=== PATIENT | male | born 1970 | race Caucasian/White ===

== ENCOUNTER 2019-01-12 21:09 | Observation (INO) | payer OTHER ==
[2019-01-12] MEDS ORDERED: HYDROmorphone 1 MG/ML 1 ML SYRINGE IVP STA (22:13)
[2019-01-12] MEDS ORDERED: SODIUM CHLORIDE 0.9% 1,000 ML IV STA (22:13)
[2019-01-12] MEDS ORDERED: ONDANSETRON 4 MG/2 ML VIAL IVP STA (22:13)
[2019-01-12] MEDS ORDERED: FAMOTIDINE 20 MG/2 ML VIAL IV STA (22:14)
--- NOTE | 2019-01-12 22:16 | ED ---
Abdominal Pain HPI - General Source: patient Mode of arrival: ambulatory Limitations: no limitations <Imani Rizzo - Last Filed: 01/13/19 02:53> <Amaury Corbin - Last Filed: 01/16/19 06:41> - General Chief Complaint: Abdominal Pain Stated Complaint: Abd pain, vomiting Time Seen by Provider: 01/12/19 21:40 - History of Present Illness Initial Comments: 48 year-old male patient presents to the emergency department today for evaluation of epigastric abdominal pain. Patient states that the pain started around 3 PM in the afternoon. States he has had multiple episodes of vomiting since. States there is 3-4 episodes a contained dark red blood. Patient states the pain is severe. Patient states he is unable to get comfortable. Patient states he has had this happen one time in the past when he became overheated. He denies any constipation or diarrhea. Denies any fever or chills. Patient denies any recent rash, shortness breath, chest pain, numbness, tingling, dizziness, weakness, hematuria, dysuria, urinary urgency, urinary frequency, headache, visual changes, or any other complaints. (Imani Rizzo) - Related Data Home Medications Medication Instructions Recorded Confirmed Metoclopramide [Reglan] 5 mg PO ACHS PRN 01/14/19 01/14/19 Previous Rx's Medication Instructions Recorded Omeprazole [PriLOSEC] 40 mg PO AC-BRKFST #30 capsule. 01/13/19 Allergies Allergy/AdvReac Type Severity Reaction Status Date / Time No Known Allergies Allergy Verified 01/14/19 10:15 Review of Systems ROS Other: All systems not noted in ROS Statement are negative. <Imani Rizzo - Last Filed: 01/13/19 02:53> ROS Other: All systems not noted in ROS Statement are negative. <Amaury Corbin - Last Filed: 01/16/19 06:41> ROS Statement: Those systems with pertinent positive or pertinent negative responses have been documented in the HPI. Past Medical History Past Medical History: No Reported History History of Any Multi-Drug Resistant Organisms: None Reported Past Surgical History: No Surgical Hx Reported Additional Past Surgical History / Comment(s): skin graft. Past Psychological History: No Psychological Hx Reported Smoking Status: Never smoker Past Alcohol Use History: None Reported Past Drug Use History: Marijuana <Imani Rizzo M - Last Filed: 01/13/19 02:53> General Exam Limitations: no limitations General appearance: alert, in no apparent distress, other (Physical well- developed, well-nourished adult male patient in no acute distress. Vital signs upon presentation are temperature 98.0F, pulse 100, respirations 16, blood pressure 131/69, pulse ox 100% on room air.) Eye exam: Present: normal appearance, PERRL, EOMI. Absent: scleral icterus, conjunctival injection, periorbital swelling ENT exam: Present: normal exam, normal oropharynx, mucous membranes moist Respiratory exam: Present: normal lung sounds bilaterally. Absent: respiratory distress, wheezes, rales, rhonchi, stridor Cardiovascular Exam: Present: regular rate, normal rhythm, normal heart sounds. Absent: systolic murmur, diastolic murmur, rubs, gallop, clicks GI/Abdominal exam: Present: soft, tenderness (Midepigastric tenderness), normal bowel sounds. Absent: distended, guarding, rebound, rigid Neurological exam: Present: alert, oriented X3, CN II-XII intact Psychiatric exam: Present: normal affect, normal mood Skin exam: Present: warm, dry, intact, normal color. Absent: rash <Imani Rizzo Jarret - Last Filed: 01/13/19 02:53> Course Vital Signs 01/12/19 01/12/19 01/13/19 21:19 23:15 03:11 Temperature 98.0 F 98 F Pulse Rate 100 103 H Pulse Rate [ 84 Right] Respiratory 16 20 18 Rate Blood Pressure 131/69 128/65 Blood Pressure 136/87 [Right Arm] O2 Sat by Pulse 100 99 98 Oximetry Medical Decision Making - Lab Data Result diagrams: 01/12/19 22:34 01/12/19 22:34 - Radiology Data Radiology results: report reviewed, image reviewed <Imani Rizzo - Last Filed: 01/13/19 02:53> - Lab Data Result diagrams: 01/12/19 22:34 01/12/19 22:34 <Amaury Corbin - Last Filed: 01/16/19 06:41> - Medical Decision Making 48 year-old male patient presents to the emergency department today for evaluation of midepigastric abdominal pain. Patient states the pain is burning, aching, and radiating through to his back. Patient states the pain is severe. Patient states he has had 10-11 episodes of vomiting prior to arrival. Physical examination did reveal midepigastric tenderness. Labs reviewed and did reveal white blood cell count of 10.7. CT abdomen and pelvis was obtained and showed no acute abnormalities. Patient was given multiple doses of pain and nausea medication with minimal relief of symptoms. He will be admitted for intractable abdominal pain and repeat labs in the morning. (Imani Rizzo) I saw this patient in conjunction with the physician assistant professor of english. I performed independent history and physical exam. Agree with case management. (Amaury Corbin) - Lab Data Lab Results 01/12/19 01/12/19 01/12/19 Range/Units 22:34 22:34 22:34 WBC 10.7 H (3.8-10.6) k/uL RBC 5.28 (4.30-5.90) m/uL Hgb 17.3 (13.0-17.5) gm/dL Hct 48.6 (39.0-53.0) % MCV 92.1 (80.0-100.0) fL MCH 32.8 (25.0-35.0) pg MCHC 35.6 (31.0-37.0) g/dL RDW 13.5 (11.5-15.5) % Plt Count 282 (150-450) k/uL Neutrophils % 85 % Lymphocytes % 11 % Monocytes % 2 % Eosinophils % 1 % Basophils % 0 % Neutrophils # 9.0 H (1.3-7.7) k/uL Lymphocytes # 1.2 (1.0-4.8) k/uL Monocytes # 0.2 (0-1.0) k/uL Eosinophils # 0.1 (0-0.7) k/uL Basophils # 0.0 (0-0.2) k/uL Sodium 142 (137-145) mmol/L Potassium 4.5 (3.5-5.1) mmol/L Chloride 106 (98-107) mmol/L Carbon Dioxide 23 (22-30) mmol/L Anion Gap 13 mmol/L BUN 19 (9-20) mg/dL Creatinine 1.08 (0.66-1.25) mg/dL Est GFR (CKD-EPI)AfAm >90 (>60 ml/min/1.73 sqM) Est GFR (CKD-EPI)NonAf 82 (>60 ml/min/1.73 sqM) Glucose 139 H (74-99) mg/dL Calcium 10.6 H (8.4-10.2) mg/dL Total Bilirubin 1.0 (0.2-1.3) mg/dL AST 38 (17-59) U/L ALT 39 (21-72) U/L Alkaline Phosphatase 91 (38-126) U/L Troponin I <0.012 (0.000-0.034) ng/mL Total Protein 8.5 H (6.3-8.2) g/dL Albumin 5.1 H (3.5-5.0) g/dL Amylase 53 (30-110) U/L Lipase 88 (23-300) U/L Urine Color Urine Appearance (Clear) Urine pH (5.0-8.0) Ur Specific [place] (1.001-1.035) Urine Protein (Negative) Urine Glucose (UA) (Negative) Urine Ketones (Negative) Urine Blood (Negative) Urine Nitrite (Negative) Urine Bilirubin (Negative) Urine Urobilinogen (<2.0) mg/dL Ur Leukocyte Esterase (Negative) Urine RBC (0-5) /hpf Urine WBC (0-5) /hpf Urine Mucus (None) /hpf 01/13/19 Range/Units 00:02 WBC (3.8-10.6) k/uL RBC (4.30-5.90) m/uL Hgb (13.0-17.5) gm/dL Hct (39.0-53.0) % MCV (80.0-100.0) fL MCH (25.0-35.0) pg MCHC (31.0-37.0) g/dL RDW (11.5-15.5) % Plt Count (150-450) k/uL Neutrophils % % Lymphocytes % % Monocytes % % Eosinophils % % Basophils % % Neutrophils # (1.3-7.7) k/uL Lymphocytes # (1.0-4.8) k/uL Monocytes # (0-1.0) k/uL Eosinophils # (0-0.7) k/uL Basophils # (0-0.2) k/uL Sodium (137-145) mmol/L Potassium (3.5-5.1) mmol/L Chloride (98-107) mmol/L Carbon Dioxide (22-30) mmol/L Anion Gap mmol/L BUN (9-20) mg/dL Creatinine (0.66-1.25) mg/dL Est GFR (CKD-EPI)AfAm (>60 ml/min/1.73 sqM) Est GFR (CKD-EPI)NonAf (>60 ml/min/1.73 sqM) Glucose (74-99) mg/dL Calcium (8.4-10.2) mg/dL Total Bilirubin (0.2-1.3) mg/dL AST (17-59) U/L ALT (21-72) U/L Alkaline Phosphatase (38-126) U/L Troponin I (0.000-0.034) ng/mL Total Protein (6.3-8.2) g/dL Albumin (3.5-5.0) g/dL Amylase (30-110) U/L Lipase (23-300) U/L Urine Color Yellow Urine Appearance Cloudy (Clear) Urine pH 5.5 (5.0-8.0) Ur Specific [place] >1.050 H (1.001-1.035) Urine Protein 2+ H (Negative) Urine Glucose (UA) Negative (Negative) Urine Ketones 3+ H (Negative) Urine Blood Small H (Negative) Urine Nitrite Negative (Negative) Urine Bilirubin Negative (Negative) Urine Urobilinogen <2.0 (<2.0) mg/dL Ur Leukocyte Esterase Negative (Negative) Urine RBC 1 (0-5) /hpf Urine WBC 1 (0-5) /hpf Urine Mucus Occasional H (None) /hpf - Radiology Data CT abdomen and pelvis was obtained. Report was reviewed in its entirety. Impression shows no acute abnormality in the abdomen or pelvis. (Imani Rizzo) Disposition Decision to Admit Reason: Admit from EC Decision Date: 01/13/19 Decision Time: 02:15 <Imani Rizzo - Last Filed: 01/13/19 02:53> <Amaury Corbin - Last Filed: 01/16/19 06:41> Clinical Impression: Intractable abdominal pain Disposition: ADMITTED IP TO THIS [facility] Condition: Serious
[2019-01-12 22:50] LABS: Basophils % (A) 0 %; Eosinophils # (A) 0.1 k/uL (0-0.7); Eosinophils % (A) 1 %; HCT 48.6 % (39.0-53.0); HGB 17.3 gm/dL (13.0-17.5); Lymphocytes # (A) 1.2 k/uL (1.0-4.8); Lymphocytes % (A) 11 %; MCH 32.8 pg (25.0-35.0); MCHC 35.6 g/dL (31.0-37.0); MCV 92.1 fL (80.0-100.0); Mean Platelet Volume 6.4; Monocytes # (A) 0.2 k/uL (0-1.0); Monocytes % (A) 2 %; Neutrophils % (A) 85 %; Platelet Count 282 k/uL (150-450); RBC 5.28 m/uL (4.30-5.90); RDW 13.5 % (11.5-15.5); WBC 10.7 k/uL (3.8-10.6)
[2019-01-12 23:09] LABS: ALT 39 U/L (21-72); AST 38 U/L (17-59); African American GFR (CKD) >90 (>60 ml/min/1.73 sqM); Albumin 5.1 g/dL (3.5-5.0); Alkaline Phosphatase 91 U/L (38-126); Amylase 53 U/L (30-110); Anion Gap 13 mmol/L; Blood Urea Nitrogen 19 mg/dL (9-20); Calcium 10.6 mg/dL (8.4-10.2); Carbon Dioxide 23 mmol/L (22-30); Chloride 106 mmol/L (98-107); Glucose 139 mg/dL (74-99); Potassium 4.5 mmol/L (3.5-5.1); Sodium 142 mmol/L (137-145); Total Protein 8.5 g/dL (6.3-8.2)
--- NOTE | 2019-01-12 23:47 | CT ---
EXAM: CT Abdomen and Pelvis With Intravenous Contrast CLINICAL HISTORY: ITS.REASON CT Reason: Pain TECHNIQUE: Axial computed tomography images of the abdomen and pelvis with intravenous contrast. CTDI is 35.87 mGy and DLP is 1897 mGy-cm. This CT exam was performed using one or more of the following dose reduction techniques: automated exposure control, adjustment of the mA and/or kV according to patient size, and/or use of iterative reconstruction technique. COMPARISON: None FINDINGS: Liver: Small right hepatic cyst. Spleen: Mild splenomegaly. No focal lesion. Gallbladder: Normal. No stones or biliary dilatation. Pancreas: Normal. No acute inflammation. No mass. Adrenal glands: Normal. No mass. Kidneys: Right renal cyst adjacent to mild scarring. Other small hypodensities in the right kidney are too small to definitively characterize. No hydronephrosis or obstructing stone. Bowel: Normal appendix. No bowel obstruction or inflammation. Urinary bladder: Normal. No wall thickening or mass. Reproductive organs: Small cystic structure measuring approximately 1.7 cm along the right spermatic cord. Muscles: No mass. Subcutaneous tissues: Mild bilateral gynecomastia. Small fat- containing umbilical hernia. Peritoneal space: Normal. No free fluid. Lymph nodes: Mildly prominent mesenteric lymph nodes are nonspecific but may be reactive. Vessels: Normal. No aneurysm or dissection. Bones: Degenerative changes of the spine. No acute fracture or bony lesion. Lung bases: Mild dependent atelectasis bilaterally. Other: Small hiatal hernia. IMPRESSION: No acute abnormality in the abdomen or pelvis.
[2019-01-13] MEDS ORDERED: HYDROmorphone 2 MG/ML 1 ML SYRINGE IVP STA (00:24)
[2019-01-13 00:27] LABS: Appearance,Urine Cloudy (Clear); Bilirubin,Urine Negative (Negative); Blood,Urine Small (Negative); Color,Urine Yellow; Glucose,Urine (UA) Negative (Negative); Ketones,Urine 3+ (Negative); Leukocyte Esterase,Urine Negative (Negative); Mucus,Urine Occasional /hpf; Nitrite,Urine Negative (Negative); PH, Urine 5.5 (5.0-8.0); Protein,Urine 2+ (Negative); RBC,Urine 1 /hpf (0-5); Urobilinogen,Urine <2.0 mg/dL (<2.0); WBC,Urine 1 /hpf (0-5)
[2019-01-13 00:29] LABS: Specific Gravity,Urine >1.050 (1.001-1.035)
[2019-01-13] MEDS ORDERED: diphenhydrAMINE 50 MG/ML 1 ML VIAL IVP STA (00:33)
[2019-01-13] MEDS ORDERED: METOCLOPRAMIDE 5 MG/ML 2 ML VIAL IVP STA (00:33)
[2019-01-13] MEDS ORDERED: NALOXONE 0.4 MG/ML 1 ML VIAL IV PRN (01:01)
[2019-01-13] MEDS ORDERED: HYDROmorphone 1 MG/ML 1 ML SYRINGE IVP PRN (01:01)
[2019-01-13] MEDS ORDERED: ONDANSETRON 4 MG/2 ML VIAL IVP PRN (01:01)
[2019-01-13] MEDS ORDERED: SODIUM CHLORIDE 0.9% 1,000 ML IV SCH (01:15)
[2019-01-13 03:15] VITALS: BMI 34.9
[2019-01-13] MEDS ORDERED: PANTOPRAZOLE 40 MG/10 ML VIAL IVP SCH (11:15)
[2019-01-13 12:10] VITALS: BP 125/82; PULSE 82; RESP 16; TEMP 97.9
--- NOTE | 2019-01-13 12:24 | P.DS ---
Providers Date of admission: 01/13/19 02:16 Attending physician: Arlen Valladares Primary care physician: Vandana Oliva [facility] Course: Please refer to my HPI for further details Patient Condition at Discharge: Serious Plan - Discharge Summary Discharge Rx Participant: Yes New Discharge Prescriptions: New Omeprazole [PriLOSEC] 40 mg PO AC-BRKFST #30 capsule. Discontinued Naproxen Sodium [Aleve] 440 mg PO Q12HR PRN PRN Reason: Pain Discharge Medication List Omeprazole [PriLOSEC] 40 mg PO AC-BRKFST #30 capsule. 01/13/19 [Rx] Follow up Appointment(s)/Referral(s): Modesta Silveira MD [STAFF PHYSICIAN] - 1 Week (Unable to make this appointment due to their phones please call and make this appointment.) None,Stated [REFERRING] - 1-2 days Patient Instructions/Handouts: Omeprazole (By mouth), Acute Abdominal Pain (DC) Activity/Diet/Wound Care/Special Instructions: activity limited until seen by No Motrin, Aspirin, aleve, Take Tylenol for pain regular diet avoid spicy foods until seen by the DR. Discharge Disposition: HOME SELF-CARE
--- NOTE | 2019-01-13 12:24 | P.HPIM ---
History of Present Illness 48-year-old pleasant man came in with compensative from severe epigastric abdominal pain mostly burning sensation and sharp pain started yesterday afternoon had multiple episodes of nausea vomiting admitted with about 3-4 episodes which contained dark red blood.. Patient was given Pepcid with significant improvement in symptoms I ordered Protonix today morning patient does take naproxen at home. Patient denied dysuria, fever. His abdominal pain nausea vomiting improved patient was started on diet. Patient was asked not to take naproxen can use extra strength Tylenol for pain up to 4-6 g total in a day. Patient will be discharged on a month up for Prilosec. No more nausea vomiting. Review of Systems REVIEW OF SYSTEMS: CONSTITUTIONAL: No fever, no malaise, no fatigue. HEENT: No recent visual problems or hearing problems. Denied any sore throat. CARDIOVASCULAR: No chest pain, orthopnea, PND, no palpitations, no syncope. PULMONARY: No shortness of breath, no cough, no hemoptysis. GASTROINTESTINAL: No diarrhea, NEUROLOGICAL: No headaches, no weakness, no numbness. HEMATOLOGICAL: Denies any bleeding or petechiae. GENITOURINARY: Denies any burning micturition, frequency, or urgency. MUSCULOSKELETAL/RHEUMATOLOGICAL: Denies any joint pain, swelling, or any muscle pain. ENDOCRINE: Denies any polyuria or polydipsia. The rest of the 14-point review of systems is negative. Past Medical History Past Medical History: No Reported History History of Any Multi-Drug Resistant Organisms: None Reported Past Surgical History: No Surgical Hx Reported Additional Past Surgical History / Comment(s): skin graft. Past Psychological History: No Psychological Hx Reported Smoking Status: Never smoker Past Alcohol Use History: None Reported Past Drug Use History: Marijuana Medications and Allergies Home Medications Medication Instructions Recorded Confirmed Type Omeprazole [PriLOSEC] 40 mg PO AC-BRKFST #30 capsule. 01/13/19 Rx Allergies Allergy/AdvReac Type Severity Reaction Status Date / Time No Known Allergies Allergy Verified 01/12/19 21:35 Physical Exam Vitals: Vital Signs Temp Pulse Pulse Resp BP BP Pulse Ox 01/13/19 12:09 97.9 F 82 16 125/82 96 01/13/19 08:30 84 18 01/13/19 03:11 98 F 84 18 136/87 98 01/12/19 23:15 103 H 20 128/65 99 01/12/19 21:19 98.0 F 100 16 131/69 100 Intake and Output 01/12/19 01/13/19 01/13/19 22:59 06:59 14:59 Intake Total 240 Balance 240 Intake: Intake, IV Titration 240 Amount Sodium Chloride 0.9% 1, 240 000 ml @ 80 mls/hr IV . [id number] AJAY Rx#:[id number] Other: # Voids 1 Weight 127.006 kg PHYSICAL EXAMINATION: GENERAL: The patient is alert and oriented x3, not in any acute distress. Obese HEENT: Pupils are round and equally reacting to light. EOMI. No scleral icterus. No conjunctival pallor. Normocephalic, atraumatic. No pharyngeal erythema. No thyromegaly. CARDIOVASCULAR: S1 and S2 present. No murmurs, rubs, or gallops. PULMONARY: Chest is clear to auscultation, no wheezing or crackles. ABDOMEN: Soft, nontender, nondistended, normoactive bowel sounds. No palpable organomegaly. MUSCULOSKELETAL: No joint swelling or deformity. EXTREMITIES: No cyanosis, clubbing, or pedal edema. NEUROLOGICAL: Gross neurological examination did not reveal any focal deficits. SKIN: No rashes. Results CBC & Chem 7: 01/12/19 22:34 01/12/19 22:34 Labs: Abnormal Lab Results - Last 24 Hours (Table) 01/12/19 01/12/19 01/13/19 Range/Units 22:34 22:34 00:02 WBC 10.7 H (3.8-10.6) k/uL Neutrophils # 9.0 H (1.3-7.7) k/uL Glucose 139 H (74-99) mg/dL Calcium 10.6 H (8.4-10.2) mg/dL Total Protein 8.5 H (6.3-8.2) g/dL Albumin 5.1 H (3.5-5.0) g/dL Ur Specific [place] >1.050 H (1.001-1.035) Urine Protein 2+ H (Negative) Urine Ketones 3+ H (Negative) Urine Blood Small H (Negative) Urine Mucus Occasional H (None) /hpf Thrombosis Risk Factor Assmnt - Choose All That Apply Any of the Below Risk Factors Present?: Yes Each Factor Represents 1 point: Age 41-60 years Other Risk Factors: No Other congenital or acquired thrombophilia - If yes, enter type in comment: No Thrombosis Risk Factor Assessment Total Risk Factor Score: 1 Thrombosis Risk Factor Assessment Level: Low Risk Assessment and Plan Plan: -Acute upper GI bleed: Secondary to severe esophagitis and gastritis or peptic is a disease improved symptoms will be discharged to follow up with primary care physician. Improved symptoms at this time blood start him on diet advance as tolerated and patient will be discharged on Prilosec avoid naproxen -Obesity: Counseling was provided -Occasional marijuana use: Counseling was provided regarding this
== END 2019-01-13 15:22 | disposition home or self-care (01) ==
LOC: EC 21:09 → SUPCPDRO 21:09 → 3NMEDONC 01-13 02:16
PROVIDERS: ADMIT Hospitalist; ATTEND Hospitalist
DX: K92.2 Gastrointestinal hemorrhage, unspecified (principal); R10.13 Epigastric pain; R11.10 Vomiting, unspecified; E66.9 Obesity, unspecified; Z68.35 Body mass index [BMI] 35.0-35.9, adult; Z79.899 Other long term (current) drug therapy
CPT/HCPCS: 96375 ×3; 96376; 96361 ×2; 96374; 99285; 36415; 93005; 80053; 82150; 83690; 84484; 85025; 81001; 74177; G0378; J1170 ×2; J1200; J2765; J2405; C9113; Q9967

== ENCOUNTER 2019-01-14 09:51 | Observation (INO) | payer OTHER ==
[2019-01-14] MEDS ORDERED: MORPHINE SULFATE 4 MG/ML SYRINGE IVP STA (10:23)
[2019-01-14] MEDS ORDERED: PANTOPRAZOLE 40 MG/10 ML VIAL IVP STA (10:23)
[2019-01-14] MEDS ORDERED: SODIUM CHLORIDE 0.9% 1,000 ML IV STA (10:23)
[2019-01-14] MEDS ORDERED: METOCLOPRAMIDE 5 MG/ML 2 ML VIAL IVP STA (10:23)
--- NOTE | 2019-01-14 10:37 | ED ---
Nausea/Vomiting/Diarrhea HPI - General Chief complaint: Nausea/Vomiting/Diarrhea Stated complaint: Stomach pain Time Seen by Provider: 01/14/19 10:02 Source: patient Mode of arrival: ambulatory Limitations: no limitations - History of Present Illness Initial comments: Patient is a 48-year-old male presenting to the emergency Department with complaints of epigastric abdominal pain and vomiting since this morning. Patient was discharged from the hospital yesterday for the same issue after staying the night and observation. Patient states he was feeling improvement yesterday and was no longer vomiting. Patient did have a abdominal CT which was normal yesterday. Patient states he attempted a bowel movement this morning when the pain started again and he has been vomiting ever since. Patient states he did not take anything for the pain he just came to the ER again. Patient states the pain has not moved and is localized and epigastric area. Patient denies any fever, chills, diarrhea. Patient states there is no blood in his vomit. Upon arrival to the ER, patient is vomiting and in extreme amount of pain. - Related Data Home Medications Medication Instructions Recorded Confirmed Metoclopramide [Reglan] 5 mg PO ACHS PRN 01/14/19 01/14/19 Previous Rx's Medication Instructions Recorded Omeprazole [PriLOSEC] 40 mg PO AC-BRKFST #30 capsule. 01/13/19 Allergies Allergy/AdvReac Type Severity Reaction Status Date / Time No Known Allergies Allergy Verified 01/14/19 10:15 Review of Systems ROS Statement: Those systems with pertinent positive or pertinent negative responses have been documented in the HPI. ROS Other: All systems not noted in ROS Statement are negative. Past Medical History Past Medical History: No Reported History History of Any Multi-Drug Resistant Organisms: None Reported Past Surgical History: No Surgical Hx Reported Additional Past Surgical History / Comment(s): skin graft. Past Psychological History: No Psychological Hx Reported Smoking Status: Never smoker Past Alcohol Use History: None Reported Past Drug Use History: Marijuana General Exam - General Exam Comments Initial Comments: GENERAL: Well-appearing, well-nourished and in mild amount of distress and currently vomiting. HEAD: Atraumatic, normocephalic. EYES: Pupils equal round and reactive to light, extraocular movements intact, sclera anicteric, conjunctiva are normal. ENT: Nares patent, oropharynx clear without exudates. Moist mucous membranes. NECK: Normal range of motion, supple without lymphadenopathy or JVD. LUNGS: Breath sounds clear to auscultation bilaterally and equal. No wheezes rales or rhonchi. HEART: Regular rate and rhythm without murmurs, rubs or gallops. ABDOMEN: Patient is very tender to palpation in the epigastric area. Soft, normoactive bowel sounds. No rebound. No masses appreciated. : Deferred EXTREMITIES: Normal range of motion, no pitting or edema. No clubbing or cyanosis. NEUROLOGICAL: Cranial nerves II through XII grossly intact. Normal speech, normal gait. PSYCH: Normal mood, normal affect. SKIN: Warm, Dry, normal turgor, no rashes or lesions noted. Limitations: no limitations Course Vital Signs 01/14/19 01/14/19 01/14/19 11:05 13:12 16:19 Pulse Rate 80 72 75 Respiratory 22 18 18 Rate Blood Pressure 128/108 145/83 141/58 O2 Sat by Pulse 99 98 98 Oximetry Medical Decision Making - Medical Decision Making Patient is a 48-year-old male presenting with acute epigastric pain and vomiting since this morning. Patient was [facility] and was seen by Dr. Frank. Patient states he felt improvement yesterday but then this morning the pain and vomiting returned. Upon arrival patient is forcefully vomiting and screaming in pain. On exam patient is severely tender in epigastric area. Patient is very anxious and crying in pain. Patient is afebrile. CBC shows white count of 12.5, CMP is within normal limits, UA shows trace blood but otherwise within normal limits. X-ray abdomen shows mild degree of colonic fecal stasis and mild gas dilation of the colon. Patient was given pain medication, Zofran, Protonix, Reglan, Pepcid with mild relief of symptoms. Patient seemed anxious with every recheck. Case was discussed with Dr. Yancey. Dr. Frank came and evaluated the patient and will admit for possible endoscope in the morning. - Lab Data Result diagrams: 01/14/19 10:30 01/14/19 11:30 Lab Results 01/14/19 01/14/19 01/14/19 Range/Units 10:30 10:40 11:30 WBC 12.5 H (3.8-10.6) k/uL RBC 5.11 (4.30-5.90) m/uL Hgb 16.5 (13.0-17.5) gm/dL Hct 47.5 (39.0-53.0) % MCV 93.1 (80.0-100.0) fL MCH 32.3 (25.0-35.0) pg MCHC 34.7 (31.0-37.0) g/dL RDW 13.5 (11.5-15.5) % Plt Count 282 (150-450) k/uL Neutrophils % 78 % Lymphocytes % 15 % Monocytes % 4 % Eosinophils % 3 % Basophils % 0 % Neutrophils # 9.7 H (1.3-7.7) k/uL Lymphocytes # 1.9 (1.0-4.8) k/uL Monocytes # 0.4 (0-1.0) k/uL Eosinophils # 0.3 (0-0.7) k/uL Basophils # 0.0 (0-0.2) k/uL Sodium 141 (137-145) mmol/L Potassium 4.5 (3.5-5.1) mmol/L Chloride 109 H (98-107) mmol/L Carbon Dioxide 20 L (22-30) mmol/L Anion Gap 12 mmol/L BUN 17 (9-20) mg/dL Creatinine 0.81 (0.66-1.25) mg/dL Est GFR (CKD-EPI)AfAm >90 (>60 ml/min/1.73 sqM) Est GFR (CKD-EPI)NonAf >90 (>60 ml/min/1.73 sqM) Glucose 110 H (74-99) mg/dL Calcium 9.6 (8.4-10.2) mg/dL Total Bilirubin 1.0 (0.2-1.3) mg/dL AST 56 (17-59) U/L ALT 40 (21-72) U/L Alkaline Phosphatase 74 (38-126) U/L Total Protein 7.5 (6.3-8.2) g/dL Albumin 4.5 (3.5-5.0) g/dL Urine Color Yellow Urine Appearance Clear (Clear) Urine pH 6.0 (5.0-8.0) Ur Specific [place] 1.022 (1.001-1.035) Urine Protein 1+ H (Negative) Urine Glucose (UA) Negative (Negative) Urine Ketones Negative (Negative) Urine Blood Trace H (Negative) Urine Nitrite Negative (Negative) Urine Bilirubin Negative (Negative) Urine Urobilinogen <2.0 (<2.0) mg/dL Ur Leukocyte Esterase Negative (Negative) Urine RBC 2 (0-5) /hpf Urine WBC 1 (0-5) /hpf Urine Mucus Occasional H (None) /hpf Disposition Clinical Impression: Intractable abdominal pain, Nausea & vomiting Disposition: ADMITTED IP TO THIS [facility] Condition: Good Is patient prescribed a controlled substance at d/c from ED?: No Decision Date: 01/14/19 Decision Time: 14:20
[2019-01-14 10:47] LABS: Basophils % (A) 0 %; Eosinophils # (A) 0.3 k/uL (0-0.7); Eosinophils % (A) 3 %; HCT 47.5 % (39.0-53.0); HGB 16.5 gm/dL (13.0-17.5); Lymphocytes # (A) 1.9 k/uL (1.0-4.8); Lymphocytes % (A) 15 %; MCH 32.3 pg (25.0-35.0); MCHC 34.7 g/dL (31.0-37.0); MCV 93.1 fL (80.0-100.0); Mean Platelet Volume 7.3; Monocytes # (A) 0.4 k/uL (0-1.0); Monocytes % (A) 4 %; Neutrophils # (A) 9.7 k/uL (1.3-7.7); Neutrophils % (A) 78 %; Platelet Count 282 k/uL (150-450); RBC 5.11 m/uL (4.30-5.90); RDW 13.5 % (11.5-15.5); WBC 12.5 k/uL (3.8-10.6)
[2019-01-14 10:59] LABS: Appearance,Urine Clear (Clear); Bilirubin,Urine Negative (Negative); Blood,Urine Trace (Negative); Color,Urine Yellow; Glucose,Urine (UA) Negative (Negative); Ketones,Urine Negative (Negative); Leukocyte Esterase,Urine Negative (Negative); Mucus,Urine Occasional /hpf; Nitrite,Urine Negative (Negative); Protein,Urine 1+ (Negative); RBC,Urine 2 /hpf (0-5); Specific Gravity,Urine 1.022 (1.001-1.035); Urobilinogen,Urine <2.0 mg/dL (<2.0)
[2019-01-14] MEDS ORDERED: FAMOTIDINE 20 MG/2 ML VIAL IV STA (11:11)
[2019-01-14] MEDS ORDERED: ONDANSETRON 4 MG/2 ML VIAL IVP STA (11:11)
[2019-01-14] MEDS ORDERED: HYDROmorphone 1 MG/ML 1 ML SYRINGE IVP STA ×2 (11:59→13:59)
[2019-01-14 12:20] LABS: ALT 40 U/L (21-72); AST 56 U/L (17-59); African American GFR (CKD) >90 (>60 ml/min/1.73 sqM); Albumin 4.5 g/dL (3.5-5.0); Alkaline Phosphatase 74 U/L (38-126); Anion Gap 12 mmol/L; Blood Urea Nitrogen 17 mg/dL (9-20); Calcium 9.6 mg/dL (8.4-10.2); Carbon Dioxide 20 mmol/L (22-30); Chloride 109 mmol/L (98-107); Glucose 110 mg/dL (74-99); Sodium 141 mmol/L (137-145); Total Protein 7.5 g/dL (6.3-8.2)
[2019-01-14 12:24] LABS: Potassium 4.5 mmol/L (3.5-5.1)
[2019-01-14] MEDS ORDERED: diphenhydrAMINE 50 MG/ML 1 ML VIAL IVP STA (13:59)
[2019-01-14] MEDS ORDERED: NALOXONE 0.4 MG/ML 1 ML VIAL IV PRN (14:25)
[2019-01-14] MEDS ORDERED: ONDANSETRON 4 MG/2 ML VIAL IVP PRN (14:25)
[2019-01-14] MEDS ORDERED: KETOROLAC 30 MG/ML 1 ML VIAL IVP PRN (14:25)
[2019-01-14] MEDS ORDERED: traMADol 50 MG TAB PO PRN (15:13)
--- NOTE | 2019-01-14 15:20 | P.HPIM ---
History of Present Illness 48-year-old gentleman was discharged to home yesterday after diagnosis of peptic ulcer disease patient's symptoms of nausea vomiting improved and patient was able to tolerate diet before discharge yesterday when patient was discharged on Prilosec patient came with similar symptoms of nausea vomiting severe epigastric abdominal burning sensation. Obtain abdominal x-ray. Patient may need an upper GI endoscopy because of his uncontrolled symptoms gastric body will be consult and and patient will be started on Protonix and Maalox. We'll use tramadol and Tylenol for pain. Toradol will be discontinued morphine will be discontinued. Patient was using naproxen multiple times a day as an outpatient. Review of Systems REVIEW OF SYSTEMS: CONSTITUTIONAL: No fever, no malaise, no fatigue. HEENT: No recent visual problems or hearing problems. Denied any sore throat. CARDIOVASCULAR: No chest pain, orthopnea, PND, no palpitations, no syncope. PULMONARY: No shortness of breath, no cough, no hemoptysis. GASTROINTESTINAL: As mentioned in HPI NEUROLOGICAL: No headaches, no weakness, no numbness. HEMATOLOGICAL: Denies any bleeding or petechiae. GENITOURINARY: Denies any burning micturition, frequency, or urgency. MUSCULOSKELETAL/RHEUMATOLOGICAL: Denies any joint pain, swelling, or any muscle pain. ENDOCRINE: Denies any polyuria or polydipsia. The rest of the 14-point review of systems is negative. Past Medical History Past Medical History: No Reported History History of Any Multi-Drug Resistant Organisms: None Reported Past Surgical History: No Surgical Hx Reported Additional Past Surgical History / Comment(s): skin graft. Past Psychological History: No Psychological Hx Reported Smoking Status: Never smoker Past Alcohol Use History: None Reported Past Drug Use History: Marijuana Medications and Allergies Home Medications Medication Instructions Recorded Confirmed Type Omeprazole [PriLOSEC] 40 mg PO AC-BRKFST #30 capsule.dr 01/13/19 01/14/19 Rx Metoclopramide [Reglan] 5 mg PO ACHS PRN 01/14/19 01/14/19 History Allergies Allergy/AdvReac Type Severity Reaction Status Date / Time No Known Allergies Allergy Verified 01/14/19 10:15 Physical Exam Vitals: Vital Signs Pulse Resp BP Pulse Ox 01/14/19 13:12 72 18 145/83 98 01/14/19 11:05 80 22 128/108 99 Intake and Output 08/01/19 08/01/19 08/01/19 06:59 14:59 22:59 Other: Weight 127.006 kg PHYSICAL EXAMINATION: GENERAL: The patient is alert and oriented x3, in distress because of abdominal discomfort and nausea. Well developed, well nourished. HEENT: Pupils are round and equally reacting to light. EOMI. No scleral icterus. No conjunctival pallor. Normocephalic, atraumatic. No pharyngeal erythema. No thyromegaly. CARDIOVASCULAR: S1 and S2 present. No murmurs, rubs, or gallops. PULMONARY: Chest is clear to auscultation, no wheezing or crackles. ABDOMEN: Soft, nontender, nondistended, normoactive bowel sounds. No palpable organomegaly. MUSCULOSKELETAL: No joint swelling or deformity. EXTREMITIES: No cyanosis, clubbing, or pedal edema. NEUROLOGICAL: Gross neurological examination did not reveal any focal deficits. SKIN: No rashes. Results CBC & Chem 7: 01/14/19 10:30 01/14/19 11:30 Labs: Abnormal Lab Results - Last 24 Hours (Table) 01/14/19 01/14/19 01/14/19 Range/Units 10:30 10:40 11:30 WBC 12.5 H (3.8-10.6) k/uL Neutrophils # 9.7 H (1.3-7.7) k/uL Chloride 109 H (98-107) mmol/L Carbon Dioxide 20 L (22-30) mmol/L Glucose 110 H (74-99) mg/dL Urine Protein 1+ H (Negative) Urine Blood Trace H (Negative) Urine Mucus Occasional H (None) /hpf Assessment and Plan Plan: -Acute gastritis, peptic ulcer disease, severe esophagitis: Patient will be started on Protonix and Maalox gastric body was consulted because of recurrent hospitalization for the same issue patient was taking naproxen at home this is probably an SCD induced. Leukocytosis: Reactive secondary to nausea vomiting -Mild anion gap metabolic acidosis secondary to both hyperchloremia and intravascular volume depletion -Obesity
--- NOTE | 2019-01-14 15:30 | XR ---
EXAMINATION TYPE: XR abdomen complete w decub DATE OF EXAM: 01/14/2019 COMPARISON: CT abdomen pelvis dated 01/12/2019 HISTORY: Abdominal pain, nausea, and vomiting TECHNIQUE: Supine, upright, and left side down lateral decubitus views of the abdomen are obtained. FINDINGS: Lung bases are well aerated. No evidence of pneumoperitoneum. Coil is seen within the left hemipelvis . Mild degree colonic fecal stasis is seen in mildly dilated colon. Air is noted throughout the colon however. No dilated small bowel. Osseous structures appear intact with moderate degenerative changes of the spine. IMPRESSION: Mild degree colonic fecal stasis and mild gaseous dilation of the colon. Findings appear to relate to colonic ileus as air and stool are seen throughout the colon.
[2019-01-14] MEDS: SODIUM CHLORIDE 0.9% 1,000 ML IV SCH (16:22)
[2019-01-14] MEDS: MAG HYDROX/AL HYDROX/SIMETH 30 ML CUP PO SCH ×2 (17:47→21:47)
[2019-01-14] MEDS: PANTOPRAZOLE 40 MG/10 ML VIAL IV SCH (21:46)
[2019-01-14] MEDS: ACETAMINOPHEN TAB 325 MG TAB PO PRN (21:47)
[2019-01-15] MEDS ORDERED: PANTOPRAZOLE 40 MG/10 ML VIAL IV SCH (09:00)
[2019-01-15] MEDS: MAG HYDROX/AL HYDROX/SIMETH 30 ML CUP PO SCH ×4 (09:12→21:59)
[2019-01-15] MEDS: PANTOPRAZOLE 40 MG/10 ML VIAL IV SCH ×2 (09:13→22:00)
[2019-01-15] MEDS: SODIUM CHLORIDE 0.9% 1,000 ML IV SCH ×2 (12:43→21:54)
--- NOTE | 2019-01-15 13:15 | P.CONS ---
History of Present Illness - Reason for Consult Consult date: 01/15/19 GERD epigastric abdominal pain Requesting physician: Mik Frank - Chief Complaint Epigastric abdominal pain - History of Present Illness 48-year-old gentleman with no significant past medical history, occasional marijuana usage, was evaluated a few days ago with reports of epigastric abdominal pain coffee-ground emesis after taking 3 tablets of Aleve. Patient states he's been stressed lately. Patient was provided PPI therapy with relief and discharged. Yesterday patient ate some chicken had increased indigestion epigastric abdominal pain and vomited. Denies gross hematemesis hematochezia or melena. No history of peptic ulcer disease EGD or colonoscopy. No history of chronic nausea vomiting abdominal pain. No weight loss fever or chills. No alcohol or chronic NSAID usage. White count 12.5. Hemoglobin 16.5. BUN 17. Creatinine 0.8. LFTs within normal limits. Abdominal x-ray mild degree of colonic fecal stasis. Review of Systems Constitutional: Denies fever, chills, sweats, weight gain, or loss. HEENT: Negative for migraines, blurred vision or loss, earaches, drainage, tinnitus, oral mucosal lesions, dysphagia, or odynophagia. CARDIAC: Negative for chest pain, arrhythmias, or palpitation. RESPIRATORY: Negative for shortness of breath, hemoptysis, cough, or sputum production. GI: See HPI for pertinent findings. : Negative for hematuria, urgency, frequency, polyuria, or dysuria. MUSCULOSKELETAL: Negative for muscle aches, swelling, arthritis, and arthralgias. NEUROLOGIC: Negative for stroke or TIA. ENDOCRINE: Negative for thyroid problems. SKIN: Negative for rash or itching. PSYCHIATRIC: Negative history for depression and anxiety Past Medical History Past Medical History: No Reported History History of Any Multi-Drug Resistant Organisms: None Reported Past Surgical History: No Surgical Hx Reported Additional Past Surgical History / Comment(s): skin graft. Past Psychological History: No Psychological Hx Reported Smoking Status: Never smoker Past Alcohol Use History: None Reported Past Drug Use History: Marijuana Medications and Allergies Home Medications Medication Instructions Recorded Confirmed Type Omeprazole [PriLOSEC] 40 mg PO AC-BRKFST #30 capsule. 01/13/19 01/14/19 Rx Metoclopramide [Reglan] 5 mg PO ACHS PRN 01/14/19 01/14/19 History Allergies Allergy/AdvReac Type Severity Reaction Status Date / Time No Known Allergies Allergy Verified 01/14/19 10:15 Physical Exam Vitals: Vital Signs Temp Pulse Pulse Resp BP BP Pulse Ox 01/15/19 12:45 97.6 F 69 16 141/99 97 01/15/19 04:35 98.1 F 74 18 124/83 98 01/14/19 20:37 98.1 F 69 18 132/79 99 01/14/19 16:58 98.8 F 01/14/19 16:19 75 18 141/58 98 01/14/19 13:12 72 18 145/83 98 Intake and Output 01/14/19 01/15/19 01/15/19 22:59 06:59 14:59 Intake Total 350 800 Balance 350 800 Intake: Intake, IV Titration 350 800 Amount Sodium Chloride 0.9% 1, 350 800 000 ml @ 100 mls/hr IV . Q10H [facility] Rx#:[id number] Other: Voiding Method Toilet Toilet General appearance: The patient is alert, oriented, in no acute distress. HET: Head is normocephalic and atraumatic. Pupils are equal and reactive. Oropharynx is clear without lesions. Neck: Supple without lymphadenopathy. Trachea midline. Heart: S1 S2. Regular rate and rhythm. Lungs: No crackles or wheezes are heard. Abdomen: Soft, mild tenderness midepigastrium, nondistended with bowel sounds. No peritoneal signs. No palpable organomegaly or masses. Extremities: Normal skin color and turgor. No cyanosis, rash, ulceration, clubbing, or edema. Radial and pedal pulses are 2/4 bilaterally. Neurological: No focal deficits. Strength and sensation are grossly intact. Results CBC & Chem 7: 01/14/19 10:30 01/14/19 11:30 Abdominal x-ray: report reviewed (Dr. Lubin) Assessment and Plan (1) Epigastric abdominal pain Narrative/Plan: 48-year-old male admitted with persistent epigastric abdominal pain 3-4 days duration initially relieved with PPI therapy then recurred without fever chills hematemesis hematochezia or melena. Possible underlying peptic ulcer disease possible exacerbation of GERD. Current Visit: Yes Status: Acute Code(s): R10.13 - EPIGASTRIC PAIN SNOMED Code(s): 15264269 Plan: 1. Protonix 40 mg daily. EGD evaluation. The assistance representative has discussed the risks, benefits and alternative therapies for the above-mentioned procedure and for both sedation/analgesia as well as necessary blood product administration, if indicated, as they pertain to this patient. The patient has indicated understanding and acceptance of the risks and procedures discussed. Thank you for this kind referral and the opportunity to participate in the care of your patient. This consultation was discussed with Dr. Lubin. The impressio n and plan of care have been directed as dictated.
[2019-01-15] MEDS ORDERED: IV FLUID CONTINUATION 950 ML IV ONE (15:02)
[2019-01-15] MEDS ORDERED: LIDOCAINE 1% INJ 10MG/ML (20 ML MDV) ONE (15:08)
[2019-01-15] MEDS ORDERED: PROPOFOL 10 MG/ML 20 ML VIAL IV ONE (15:08)
--- NOTE | 2019-01-15 15:19 | P.PCN ---
Date of Procedure: 01/15/19 Procedure(s) Performed: BRIEF HISTORY: Patient is a 48-year-old, pleasant,, admitted to hospital because of severe epigastric pain for the last 5 days duration. He had acute onset of pain and epigastric area followed by multiple episodes of nausea vomiting. He came into the emergency room 5 days ago was treated symptomatically with Prilosec and was discharged home. CT of the abdomen and pelvis was unremarkable. Yesterday he started having worsening symptoms and hence readmitted to the hospital for further evaluation. He is hence scheduled for an upper endoscopy to evaluate further. PROCEDURE PERFORMED: Esophagogastroduodenoscopy with biopsy. PREOPERATIVE DIAGNOSIS: Severe epigastric pain associated with nausea vomiting for 5 days duration. IV sedation per anesthesia. PROCEDURE: After informed consent was obtained, the patient was brought into the endoscopy unit. IV sedation was administered by Anesthesia under continuous monitoring. Initially the Olympus GIF-140 video endoscope was inserted into the mouth. Esophagus intubated without any difficulty. It was gradually advanced int o the stomach and duodenum and carefully examined. The bulb and the second part of the duodenum appeared normal. The scope at this time was withdrawn to the stomach, adequately insufflated with air, and upon careful examination, mucosa of the antrum, diffuse gastritis with mucosal erythema and biopsies were done to evaluate for H. pylori infection. No evidence of peptic ulcer disease. The body, cardia and the fundus appeared normal. The scope was then withdrawn into the esophagus. The GE junction was located at 39 cm from the incisors. There were linear erosions in the distal esophagus consistent with LA grade B reflux esophagitis. Moderate size hiatal hernia noted. Rest of the esophagus appeared normal and the patient tolerated the procedure well. IMPRESSION: 1. Linear erosions in the distal esophagus consistent with LA grade B reflux esophagitis. 2. Moderate sized hiatal hernia 3. Mild antral gastritis. RECOMMENDATIONS: The findings of this examination were discussed with the patient the less his family. He was advised to follow with the biopsy results. In the meantime he'll continue with Protonix 40 mg twice daily and follow antireflux measures. Diet will be advanced as tolerated..
--- NOTE | 2019-01-15 16:06 | P.PN ---
Subjective Progress Note Date: 01/15/19 This is a 48-year-old male was recently admitted with severe epigastric abdominal pain with nausea and vomiting and is being closely monitored. Patient was recently discharged with a diagnosis of peptic ulcer disease a few days prior. Patient states that he went home feeling better and able to tolerate his diet. Patient states the next day he started having some abdominal discomfort again that had progressed throughout the day and started having severe vomiting that was uncontrollable which made him come back to the emergency room. Patient was clear liquids last night and tolerating and made nothing by mouth after midnight. Patient is awaiting an EGD to be performed with GI today. Patient is having some mid epigastric pain and discomfort but states that he feels it's mostly just hunger pains at this time. Patient states that he is urinating and having bowel movements. Patient is afebrile. Patient denies any chest pain, shortness of breath, or palpitations at this time. Patient has not had any episodes of vomiting since yesterday. Will continue to follow. Guarded prognosis. Objective - Vital Signs Vital signs: Vital Signs Temp 97.6 F 01/15/19 12:45 Pulse 69 01/15/19 12:45 Resp 16 01/15/19 12:45 BP 141/99 01/15/19 12:45 Pulse Ox 97 01/15/19 12:45 Intake & Output 01/14/19 01/15/19 01/15/19 18:59 06:59 18:59 Intake Total 1150 800 Balance 1150 800 Weight 127.006 kg Intake: Intake, IV Titration 1150 800 Amount Sodium Chloride 0.9% 1, 1150 800 000 ml @ 100 mls/hr IV . Q10H [facility] Rx#:[id number] Other: Voiding Method Toilet Toilet - Exam Gen: This is a 48-year-old male lying in bed in no acute distress. Vital signs are stable. Temp is 97.6F, pulse is 69, respirations are 16, blood pressure is 141/99, oxygen saturations 97% on room air. HEENT: Head is atraumatic, normocephalic. Pupils equal, round. Sclerae is anicteric. NECK: Supple. No JVD. No lymphadenopathy. No thyromegaly. LUNGS: Clear to auscultation. No wheezes or rhonchi. No intercostal retractions. HEART: Regular rate and rhythm. No murmur. ABDOMEN: Soft. Bowel sounds are present. No masses. Mild tenderness upon deep palpation. EXTREMITIES: No pedal edema. No calf tenderness. NEUROLOGICAL: Patient is awake, alert and oriented x3. Cranial nerves 2 through 12 are grossly intact. - Labs CBC & Chem 7: 01/14/19 10:30 01/14/19 11:30 Assessment and Plan Assessment: Acute gastritis, peptic ulcer disease, severe esophagitis: Patient was started on Protonix and awaiting an EGD with GI this afternoon. Leukocytosis: Reactive secondary to nausea and vomiting. Current white blood count is 12.5 Mild anion gap metabolic acidosis: Secondary to both hyperchloremia and intravascular volume depletion Obesity Recommendations and discussion: Recommend continuing current medication management and symptomatically treatment. GI is following. Patient is to undergo an EGD as afternoon. Will await for report. Guarded prognosis. Will continue to monitor closely. Further recommendations to follow.
[2019-01-16] MEDS: SODIUM CHLORIDE 0.9% 1,000 ML IV SCH (05:58)
[2019-01-16] MEDS: ACETAMINOPHEN TAB 325 MG TAB PO PRN (06:50)
[2019-01-16] MEDS: PANTOPRAZOLE 40 MG/10 ML VIAL IV SCH (08:54)
[2019-01-16] MEDS: MAG HYDROX/AL HYDROX/SIMETH 30 ML CUP PO SCH (08:54)
[2019-01-16 11:57] VITALS: BP 132/86; PULSE 74; RESP 17; TEMP 97.7
--- NOTE | 2019-01-16 12:39 | P.DS ---
Providers Date of admission: 01/14/19 14:56 Attending physician: Mik Frank Consults: 01/14/19 14:25 Consult Physician Stat Consulting Provider: Jeanna Lubin Consult Reason/Comments: Irretractable epigastric pain, vomiting Do you want consulting provider notified?: Yes Primary care physician: Vandana Oliva [facility] Course: Patient was admitted seconded epigastric abdominal burning sensation u ncontrollable nausea and vomiting up underwent upper GI endoscopy which showed esophagitis and gastritis able to tolerate diet today patient will be discharged today and now Protonix twice a day for about 20 days followed by Zantac. Patient has to avoid nonsteroidal anti-inflammatory use PHYSICAL EXAMINATION: GENERAL: The patient is alert and oriented x3, not in any acute distress. Well developed, well nourished. HEENT: Pupils are round and equally reacting to light. EOMI. No scleral icterus. No conjunctival pallor. Normocephalic, atraumatic. No pharyngeal erythema. No thyromegaly. CARDIOVASCULAR: S1 and S2 present. No murmurs, rubs, or gallops. PULMONARY: Chest is clear to auscultation, no wheezing or crackles. ABDOMEN: Soft, nontender, nondistended, normoactive bowel sounds. No palpable organomegaly. MUSCULOSKELETAL: No joint swelling or deformity. EXTREMITIES: No cyanosis, clubbing, or pedal edema. NEUROLOGICAL: Gross neurological examination did not reveal any focal deficits. SKIN: No rashes. Please refer to my dictation of progress note for further details of hospital physician course and other medical problems that were addressed here Patient Condition at Discharge: Good Plan - Discharge Summary New Discharge Prescriptions: New Pantoprazole Sodium [Protonix] 40 mg PO BID #40 tablet. Discontinued Omeprazole [PriLOSEC] 40 mg PO AC-BRKFST #30 capsule. No Action Metoclopramide [Reglan] 5 mg PO ACHS PRN PRN Reason: Nausea Discharge Medication List Metoclopramide [Reglan] 5 mg PO ACHS PRN 01/14/19 [History] Pantoprazole Sodium [Protonix] 40 mg PO BID #40 tablet. 01/16/19 [Rx] Follow up Appointment(s)/Referral(s): Hazel Ross MD [Primary Care Provider] - 3 Days (Patient to call Dr. Ross's office Friday morning to schedule follow up appointment. The office is closed at time of discharge.) Jeanna Lubin MD [STAFF PHYSICIAN] - 1 Week (Patient to call Dr. Lubin's office Friday to schedule follow up appointment. The office is closed at time of discharge. ) Patient Instructions/Handouts: Pantoprazole (By mouth), Acute Nausea and Vomiting (DC), Acute Abdominal Pain (DC) Discharge Disposition: HOME SELF-CARE
--- NOTE | 2019-01-16 15:47 | PN ---
PROGRESS NOTE Patient is a 48-year-old pleasant white male admitted to the hospital with severe epigastric pain and chest pain. He underwent an upper endoscopy yesterday that showed small hiatal hernia, moderate reflux esophagitis and mild gastritis. He has been on pantoprazole 40 mg twice daily. His symptoms are significantly improved. This morning he is feeling better. Abdominal pain has resolved. On a regular diet, tolerating well. PHYSICAL EXAMINATION: Appears comfortable no apparent distress. VITAL SIGNS: Stable. Blood pressure 130/89, pulse rate 68, temperature 97.7. HEENT: Examination unremarkable. Conjunctivae pink. Sclerae anicteric. Oral cavity, no lesions. NECK: No JVD or lymph node enlargement. CHEST: Clear to auscultation. HEART: Regular rate and rhythm. ABDOMEN: Soft. Bowel sounds are positive. No organomegaly. EXTREMITIES: No pedal edema. SKIN: No rashes. NEURO: Alert, oriented x3. No focal deficits. LABS: Labs from 2 days ago, WBC 12.5, hemoglobin 16.5, platelets normal. Basic metabolic within normal limits. IMPRESSION: Acute onset of severe epigastric pain of 5 days duration upper endoscopy done yesterday showed evidence of hiatal hernia and reflux esophagitis. Presently on Protonix 40 mg daily and doing well. Symptoms have resolved. RECOMMENDATIONS: 1. Continue with Protonix 40 mg twice daily. 2. Anti-reflux measures. 3. Diet modification. 4. He can be discharged home today with outpatient followup in 3-4 weeks. Thank you for this consultation. MMERAN / CARITO: [id number] /
== END 2019-01-16 12:35 | disposition home or self-care (01) ==
LOC: EC 09:51 → 3NMEDONC 14:56
PROVIDERS: ADMIT Internal Medicine; ATTEND Internal Medicine
DX: K29.70 Gastritis, unspecified, without bleeding (principal); K21.0 Gastro-esophageal reflux disease with esophagitis; K44.9 Diaphragmatic hernia without obstruction or gangrene; E87.2 Acidosis; K59.8 Other specified functional intestinal disorders; D72.829 Elevated white blood cell count, unspecified; E87.8 Other disorders of electrolyte and fluid balance, not elsewhere classified; E86.9 Volume depletion, unspecified; E66.9 Obesity, unspecified; Z68.35 Body mass index [BMI] 35.0-35.9, adult; F12.90 Cannabis use, unspecified, uncomplicated
CPT/HCPCS: 96376 ×2; 96375 ×2; 96361; 96374; 99285; 36415; 88305; 80053; 85025; 81001; 74021; 43239; G0378 ×3; J2270; J1200; J2765; J2405; J2001; J1170; J2704; C9113 ×3

== ENCOUNTER 2022-06-26 13:54 | Emergency (ER) | payer OTHER ==
[2022-06-26 14:46] VITALS: BP 112/74; PULSE 82; RESP 16; TEMP 98.6
--- NOTE | 2022-06-26 14:50 | ED ---
ENT HPI - General Source: patient Mode of arrival: ambulatory - History of Present Illness MD complaint: sore throat, ear pain Severity scale (1-10): 0 Associated Symptoms: cough, sore throat <Juan Manuel Horn - Last Filed: 06/26/22 14:48> <Tran Li - Last Filed: 06/26/22 22:48> - General Chief complaint: ENT Stated complaint: poss strep/ear infection Time Seen by Provider: 06/26/22 14:44 - History of Present Illness Initial comments: This is a well-appearing 52-year-old male who presents ambulatory with complaints of 3 days of fever, cough, sore throat and earaches. Patient states looked up his symptoms and is concerned for strep throat requesting antibiotics. Did have diarrhea yesterday with one episode of diarrhea today. Denies any nausea vomiting. No abdominal pain. States he feels like his symptoms are improving. He is a daily marijuana smoker. No other medical history. (Juan Manuel Horn) 52-year-old male with no past medical history presents emergency Department reporting ear pain, sore throat, productive cough and fevers. His symptoms have been going on for the past couple of days. States that his did test positive for strep. He denies any chest pain. Does have mild shortness of breath. Has not been taking any medications at home for her symptoms. Denies any calf pain or swelling. No cardiac or pulmonary history. No nausea or vomiting. Did have one episode of diarrhea yesterday. No other alleviating, precipitating or modifying factors (Tran Li) - Related Data Home Medications Medication Instructions Recorded Confirmed Metoclopramide [Reglan] 5 mg PO ACHS PRN 01/14/19 01/14/19 Previous Rx's Medication Instructions Recorded Pantoprazole Sodium [Protonix] 40 mg PO BID #40 tablet. 01/16/19 Albuterol Inhaler [Ventolin Hfa 1 puff INHALATION QID #8 gm 06/26/22 Inhaler] Azithromycin [Zithromax Z Pack] 1 tab PO DIRECTED #6 tab 06/26/22 Fluticasone Nasal [place] [Flonase 2 spr EA NOSTRIL DAILY #16 gm 06/26/22 Nasal [place]] predniSONE [Deltasone] 20 mg PO BID #10 tab 06/26/22 Allergies Allergy/AdvReac Type Severity Reaction Status Date / Time No Known Allergies Allergy Verified 06/26/22 14:48 Review of Systems ROS Other: All systems not noted in ROS Statement are negative. <Juan Manuel Horn - Last Filed: 06/26/22 14:48> ROS Other: All systems not noted in ROS Statement are negative. <Tran Li - Last Filed: 06/26/22 22:48> ROS Statement: Those systems with pertinent positive or pertinent negative responses have been documented in the HPI. Past Medical History Past Medical History: No Reported History History of Any Multi-Drug Resistant Organisms: None Reported Past Surgical History: No Surgical Hx Reported Additional Past Surgical History / Comment(s): skin graft. Past Psychological History: No Psychological Hx Reported Past Alcohol Use History: None Reported Past Drug Use History: Marijuana <Juan Manuel Horn - Last Filed: 06/26/22 14:48> Course Vital Signs 06/26/22 14:45 Temperature 98.6 F Pulse Rate 82 Respiratory 16 Rate Blood Pressure 112/74 O2 Sat by Pulse 98 Oximetry Medical Decision Making <Tran Li - Last Filed: 06/26/22 22:48> - Medical Decision Making Was pt. sent in by a medical professional or institution? @ -[by , PA, WELLNESS NURSE RN, urgent care, hospital, or intermediate] Did you speak to anyone other than the patient for history? @ -[EMS, parent, family, police, friend?] Did you review nursing and triage notes? @ -[agree or disagree, why?] Were old charts reviewed? @ -[outside hosp., previous admissions, EMS record, old EKG, old radiological studies, urgent care reports/EKGs, intermediate records?] Differential Diagnosis? @ -[chest pain, altered mental status abdominal pain women, abdominal pain men, vaginal bleeding, weakness, fever, dyspnea, syncope, headache, dizziness, GI bleed, back pain, seizure] EKG interpreted by me (3pts min.)? @ -[none] X-rays interpreted by me (1pt min.)? @ -[none] CT interpreted by me (1pt min.)? @ -[none] U/S interpreted by me (1pt. min.)? @ -[none] What testing was considered but not performed? (CT, X-rays, U/S, labs)? Why? @ [CT, X-rays, U/S, labs? Why?] What meds were considered but not given? Why? @ -[none] Did you discuss the management of the patient with other professionals? @ -[professionals i.e. Dr, PA, WELLNESS NURSE RN, Lab, RT, Psych Nurse, Tour Bus Driver/Guide, Air Cargo Specialist, Teacher, Ironer Sock, hospice case manager? Give summary] Did you reconcile home meds? @ -[none] Was smoking cessation discussed for >3mins.? @ -[none] Was critical care preformed (if so, how long)? @ -[none] Were there social determinants of health that impacted care today? How? (Homelessness, low income, unemployed, alcoholism, drug addiction, transportation, low edu. Level, literacy, decrease access to med. care, fci, rehab)? @ -[Homelessness, low income, unemployed, alcoholism, drug addiction, tra nsportation, low edu. Level, literacy, decrease access to med. care, fci, rehab?] Was there de-escalation of care discussed even if they declined? (Discuss DNR or withdrawal of care, Hospice)? @ -[Discuss DNR or withdrawal of care, Hospice?] What co-morbidities impacted this encounter? (DM, HTN, Smoking, COPD, CAD, Cancer, CVA, Hep., AIDS, mental health diagnosis, sleep apnea, morbid obesity)? @ -[DM, HTN, Smoking, COPD, CAD, Cancer, CVA, Hep., AIDS, mental health diagnosis, sleep apnea, morbid obesity?] Was patient admitted / discharged? Upon arrival patient was placed into room 16. A thorough history and physical exam is performed. It patient was swabbed for Covid, RSV and influenza prior to me seeing the patient. He does test positive for RSV. Strep is performed which is negative. Chest x-ray performed which demonstrates no acute process. Patient will be placed on prednisone, Zithromax, albuterol inhaler and Flonase. Also recommended that he take Claritin daily. He is to take the regimen as directed and follow up with his primary care doctor. Return for any new or worsening symptoms. Patient agreeable to the treatment plan and he was discharged in stable condition Undiagnosed new problem with uncertain prognosis? @ -[none] Drug Therapy requiring intensive monitoring for toxicity (Heparin, Nitro, Insulin, Cardizem)? @ -[none] Were any procedures done? @ -[none] Diagnosis/symptom? @ -[default] Acute, or Chronic, or Acute on Chronic? @ -[default] Uncomplicated (without systemic symptoms) or Complicated (systemic symptoms)? @ -[default] Side effects of treatment? @ -[none] Exacerbation, Progression, or Severe Exacerbation] @ -[no] Poses a threat to life or bodily function? @ -[no] (Tran Li) - Lab Data Lab Results 06/26/22 06/26/22 Range/Units 14:49 14:49 Influenza Type A (PCR) Not Detected (Not Detectd) Influenza Type B (PCR) Not Detected (Not Detectd) RSV (PCR) Detected A (Not Detectd) SARS-CoV-2 (PCR) Not Detected (Not Detectd) Group A Strep (PCR) NOT DETECTED (Not Detectd) Disposition <Juan Manuel Horn - Last Filed: 06/26/22 14:48> Is patient prescribed a controlled substance at d/c from ED?: No Time of Disposition: 17:34 <Tran Li - Last Filed: 06/26/22 22:48> Clinical Impression: RSV bronchitis Disposition: HOME SELF-CARE Condition: Stable Instructions (If sedation given, give patient instructions): Respiratory Syncytial Virus (ED), Acute Bronchitis (ED) Additional Instructions: Please buy and take Claritin daily. Start the steroids tomorrow as you were given the first dose in the ED. Use the Flonase, inhaler and antibiotics as they are directed starting today. Follow-up with your doctor in 2-4 days and return for any new or worsening symptoms Prescriptions: predniSONE [Deltasone] 20 mg PO BID #10 tab Fluticasone Nasal [place] [Flonase Nasal [place]] 2 spr EA NOSTRIL DAILY #16 gm Albuterol Inhaler [Ventolin Hfa Inhaler] 1 puff INHALATION QID #8 gm Azithromycin [Zithromax Z Pack] 1 tab PO DIRECTED #6 tab Referrals: None,Stated [REFERRING] - 1-2 days
--- NOTE | 2022-06-26 15:13 | XR ---
EXAMINATION TYPE: XR chest 2V DATE OF EXAM: 06/26/2022 COMPARISON: NONE TECHNIQUE: PA and lateral views submitted. HISTORY: Cough FINDINGS: The lungs are clear and there is no pneumothorax, pleural effusion, or focal pneumonia. Heart size normal and no overt failure. Osseous structures demonstrate hypertrophic and degenerative changes of the spine. IMPRESSION: 1. No acute process.
[2022-06-26] MEDS ORDERED: predniSONE 20 MG TAB PO STA (17:24)
== END 2022-06-26 17:50 | disposition home or self-care (01) ==
LOC: EC 13:54
DX: J20.5 Acute bronchitis due to respiratory syncytial virus (principal); F12.90 Cannabis use, unspecified, uncomplicated; Z20.822 Contact with and (suspected) exposure to COVID-19
CPT/HCPCS: 87651; 87636; 71046; 99284; J7512

== ENCOUNTER → 2022-09-03 | Outpatient (CLI) | payer OTHER ==
--- NOTE | 2022-09-03 08:53 | XR ---
EXAM TYPE: LUMBAR SPINE X RAY SERIES COMPARISON: NONE HISTORY: Pain TECHNIQUE: 4 views are submitted. FINDINGS: Alignment is anatomic. The pedicles are intact. The transverse processes are intact. There is no s pondylolisthesis. Hypertrophic and degenerative changes of the near the thoracolumbar junction. Ther e is facet arthropathy involving the lower lumbosacral spine suspected foraminal encroachment levels L3-S1. IMPRESSION: 1. Multilevel hypertrophic and degenerative changes advanced facet arthropathy in the lower lumbar sp ine likely resulting in multilevel foraminal encroachment..
--- NOTE | 2022-09-03 08:54 | XR ---
EXAMINATION TYPE: XR thoracic spine complete DATE OF EXAM: 09/03/2022 COMPARISON: NONE HISTORY: Pain TECHNIQUE: 3 views submitted FINDINGS: Alignment is anatomic. There is no compression deformities. There are severe degenerative disc disea se lower thoracic spine and thoracolumbar junction. There is a chronic-appearing superior endplate de formities thoracic segment. Mild multilevel additional degenerative disc disease. IMPRESSION: 1. Severe degenerative disc disease lower thoracic spine as discussed above.
== END | disposition home or self-care (01) ==
LOC: RADXRMAIN 07:52
PROVIDERS: ATTEND Family Medicine
DX: M47.816 Spondylosis without myelopathy or radiculopathy, lumbar region (principal); M51.34 Other intervertebral disc degeneration, thoracic region
CPT/HCPCS: 72072; 72100

== ENCOUNTER → 2022-09-03 | Outpatient (CLI) | payer OTHER ==
[2022-09-03 10:46] LABS: Basophils # (A) 0.06 X 10*3/uL (0.00-0.10); Basophils % (A) 0.6 %; Eosinophils # (A) 0.65 X 10*3/uL (0.04-0.35); Eosinophils % (A) 6.3 %; HGB 16.2 g/dL (13.0-17.0); Immature Grans, Automated 0.5 %; Lymphocytes # (A) 2.26 X 10*3/uL (0.90-5.00); Lymphocytes % (A) 21.8 %; MCH 32.9 pg (27.0-32.0); MCHC 34.5 g/dL (32.0-37.0); MCV 95.5 fL (80.0-97.0); Mean Platelet Volume 10.2 fL (9.5-12.2); Monocytes # (A) 0.53 X 10*3/uL (0.20-1.00); Monocytes % (A) 5.1 %; NRBC Per 100 WBC 0 /100 WBCS (0.0-0.0); Neutrophils # (A) 6.83 X 10*3/uL (1.80-7.70); Neutrophils % (A) 65.7 %; Platelet Count 230 X 10*3/uL (140-440); RBC 4.92 X 10*6/uL (4.40-5.60); RDW 13.8 % (11.5-14.5); WBC 10.38 X 10*3/uL (4.50-10.00)
[2022-09-03 11:47] LABS: ALT 40 U/L (10-49); AST 34 U/L (14-35); African American GFR (CKD) 98.9 (60.0-200.0); Albumin 4.6 g/dL (3.8-4.9); Albumin/Globulin Ratio 1.88 (1.60-3.17); Alkaline Phosphatase 74 U/L (41-126); Calcium 9.9 mg/dL (8.7-10.3); Carbon Dioxide 27.1 mmol/L (20.0-27.5); Chloride 105 mmol/L (96-109); Chol/HDL Ratio 5.14 Ratio; Globulin 2.5 g/dL (1.6-3.3); Glucose 99 mg/dL (70-110); LDL Cholesterol,Calculated 107.2 mg/dL (0.0-131.0); Non-African American GFR(CKD) 85.3 (60.0-200.0); Potassium 4.9 mmol/L (3.5-5.5); Sodium 143 mmol/L (135-145); Total Protein 7.1 g/dL (6.2-8.2); VLDL Calculation 14.38 mg/dL (5.00-40.00)
== END | disposition home or self-care (01) ==
LOC: LABWHC1 07:13
PROVIDERS: ATTEND Family Medicine
DX: Z00.00 Encounter for general adult medical examination without abnormal findings (principal); Z12.5 Encounter for screening for malignant neoplasm of prostate; F55.3 Abuse of steroids or hormones
CPT/HCPCS: 80061; 80053; 84443; 85025; 84403; 82306; 36415; G0103

== ENCOUNTER → 2022-10-11 | Outpatient (CLI) | payer OTHER | END | disposition home or self-care (01) | LOC: RADMRIMAIN 11:22 | PROVIDERS: ATTEND Nurse Practitioner Family | DX: Z53.9 Procedure and treatment not carried out, unspecified reason (principal) ==